=== PATIENT | female | born 1950 | race Two or more races ===

== ENCOUNTER 2022-10-04 06:19 | Day surgery (SDC) | payer OTHER ==
[~2022-10-04] VITALS: Ht 167.6 cm; Wt 77.1 kg
[~2022-10-04 06:19] MED LIST: ARICEPT10 MG PO; COZAAR100 MG PO; NORVASC5 MG PO; XARELTO20 MG PO
== END 2022-10-04 13:45 | disposition home or self-care (01) ==
LOC: CIR.AMB 06:19
PROVIDERS: ATTEND Orthopaedic Surgery
DX: M75.121 Complete rotator cuff tear or rupture of right shoulder, not specified as traumatic (principal); M25.311 Other instability, right shoulder; M75.21 Bicipital tendinitis, right shoulder; F17.210 Nicotine dependence, cigarettes, uncomplicated; Z88.0 Allergy status to penicillin; Z20.822 Contact with and (suspected) exposure to COVID-19

== ENCOUNTER 2023-05-15 06:26 | Day surgery (SDC) | payer OTHER ==
[~2023-05-15] VITALS: Ht 165.1 cm; Wt 77.1 kg
[2023-05-15] MEDS ORDERED: NEURONTIN300 MG PO (11:02)
[2023-05-15] MEDS ORDERED: PERCOCET 5-3251 EACH PO (11:02)
[2023-05-15] MEDS ORDERED: POLY119PG PO (11:02)
== END 2023-05-15 14:45 | disposition home or self-care (01) ==
LOC: CIR.AMB 06:26
PROVIDERS: ATTEND Surgery
DX: K40.20 Bilateral inguinal hernia, without obstruction or gangrene, not specified as recurrent (principal); I10 Essential (primary) hypertension; Z20.822 Contact with and (suspected) exposure to COVID-19
CPT/HCPCS: 49650; C1781